=== PATIENT | female | born 1980 | race Caucasian/White ===

== ENCOUNTER 2016-11-15 18:28 | Emergency (ER) | payer SELFPAY ==
[~2016-11-15] VITALS: Wt 75.9 kg
[2016-11-15 18:34] VITALS: BP 155/96
[2016-11-15] MEDS ORDERED: ADDERALL 30 MG30 MG PO (18:36)
[2016-11-15] MEDS ORDERED: AMBIEN5 M1 PO (18:58)
== END 2016-11-15 21:11 | disposition home or self-care (01) ==
LOC: ED 18:28
DX: F15.980 Other stimulant use, unspecified with stimulant-induced anxiety disorder (principal); E87.6 Hypokalemia; R07.89 Other chest pain; I10 Essential (primary) hypertension; G47.00 Insomnia, unspecified